=== PATIENT | female | born 1940 | race Caucasian/White ===

== ENCOUNTER 2017-02-22 15:20 | Observation (INO) ==
[2017-02-22] MEDS ORDERED: Nitroglycerin 0.4 MG TAB.SUBL SL ONE (15:26)
--- NOTE | 2017-02-22 15:32 | Emergency Department Note ---
Disposition Clinical Impression: Unstable angina Disposition: Admitted As Inpatient Condition: Good Time of Disposition: 17:53 General Adult HPI - General Chief complaint: ED General Medical Stated complaint: Shoulder/back pain Time Seen by Provider: 02/22/17 15:21 Source: patient, EMS Mode of arrival: ambulatory Limitations: no limitations Nursing Notes Reviewed: Yes Vital Signs Reviewed: Yes - History of Present Illness HPI Narrative: 76-year-old female history of CAD s/p stent over 15 years ago, hypertension, hyperlipidemia, non-smoker presents with shoulder and right back pain. Pain started at 1300 while at rest. She was in town visiting daughter and grandchildren, while getting to ready to leave getting out of the car she felt lightheaded and a sharp constant pain in between the shoulder blades. Denies any history of fall or trauma. Denies any chest pain. Denies any radiation or tearing sensation. She did have associated difficulty breathing and pain with deep inhalation and nausea. Denies any diaphoresis or vomiting. She was playing with her grandchildren. Patient took baby aspirin this morning 7 o' clock. She was also given additional dose of aspirin by EMS. Nitro was also given in her pain has diminished from a 7 to a 5. Denies any history of blood clots, active cancer, recent surgery or long hospitalization. Pain is similar to her myocardial infarction 15 years ago at that time she was diaphoretic, nauseated with some dizziness and back pain as well. On evaluation, pain is pinpoint in the right medial scapula. Symmetrical radial pulses. Chest pain workup initiated. Will continue with a nitro trial, her BP is 109/67. Patient is in agreement with this plan. Disposition pending workup may need admission for observation vs. repeat troponin. HEART score 5 pending troponin Pain Scale: 5 - Related Data Home Medications Medication Instructions Recorded Confirmed Aspirin 81 mg PO DAILY 01/12/16 02/22/17 Losartan/Hydrochlorothiazide 1 tab PO DAILY 01/12/16 02/22/17 [Hyzaar 100-25 Tablet] Simvastatin [Zocor] 40 mg PO HS 01/12/16 02/22/17 Amlodipine Besylate [Amlodipine 5 mg PO DAILY 01/26/16 02/22/17 Besylate] Hydroxychloroquine [Plaquenuil] 200 mg PO BID 04/09/16 02/22/17 Vit Calc,Iron,Folic 1 each PO DAILY 04/09/16 02/22/17 [ Vitamins] FLUoxetine HCl [Prozac] 40 mg PO DAILY 02/22/17 02/22/17 Meloxicam [Mobic] 7.5 mg PO DAILY 02/22/17 02/22/17 Allergies Allergy/AdvReac Type Severity Reaction Status Date / Time No Known Allergies Allergy Verified 07/21/16 13:14 All systems ED: reviewed and negative except as stated. Review of Systems: As Per HPI Constitutional: Denies: fever, chills, weakness Eyes: Denies: vision change Cardiovascular: Denies: chest pain, dyspnea on exertion Respiratory: Reports: dyspnea. Denies: cough Gastrointestinal: Reports: nausea. Denies: abdominal pain, vomiting, diarrhea Genitourinary: Denies: urgency, dysuria Musculoskeletal: Reports: back pain. Denies: neck pain Integumentary: Denies: rash, abrasion Neurological: Denies: headache, weakness, vertigo Past Medical History - Past Medical History Attestation: Yes The following information was validated with the patient. Source: patient Medical history: Reports: non-contributory, hyperlipidemia, hypertension Psychiatric history: Reports: depression FLOW SPECIALIST history: Reports: no FLOW SPECIALIST history - Social History Smoking Status: Never smoker Smokeless Tobacco Status: No Alcohol use: Reports: none Drug use: Reports: none Physical Exam - General Limitations: no limitations General appearance: alert, in no apparent distress - Head Head exam: atraumatic, normocephalic, normal inspection - Eye Eye exam: Present: normal appearance, PERRL, EOMI - ENT ENT exam: normal exam, normal oropharynx, mucous membranes moist - Neck Neck exam: Present: normal inspection, full ROM, trachea midline - Chest Chest inspection: Present: normal inspection, symmetric chest wall rise. Absent : tenderness, rash - Respiratory Respiratory exam: Present: normal lung sounds bilaterally. Absent: respiratory distress, wheezes - Cardiovascular Cardiovascular exam: Present: regular rate, normal rhythm, normal heart sounds - Expanded Cardiovascular Exam Peripheral pulses: 2+: radial (R), radial (L) - Abdominal Exam Abdominal exam: Present: soft, Non-Tender, normal bowel sounds. Absent: tenderness, distention, guarding, rebound, rigidity - Extremities Exam Extremities exam: Present: normal inspection, full ROM, normal capillary refill. Absent: tenderness, pedal edema, calf tenderness - Back Exam Back exam: Present: normal inspection, full ROM, paraspinal tenderness (right medial scapula). Absent: CVA tenderness (R), CVA tenderness (L), vertebral tenderness Back 1 view image: 1 - pinpoint tenderness, worse with protraction of right arm - Neurological Exam Neurological exam: Present: alert, oriented X3 - Skin Skin exam: Present: warm, dry, intact, normal color. Absent: rash, cyanosis, diaphoresis Course - Reevaluation(s) Reevaluation #1: Patient's blood pressure 118/62. After one nitro pain unchanged but developed a headache. She became hypotensive SBP 90 and 500 cc fluid bolus ordered. BP responded appropriately. She has a mild increase in her creatinine 1.3. Troponin 0.01. She continues to not have any chest pain. HEART score is 5 with negative troponin. Due to similarity of her symptoms from prior DE with stents will admit for cardiac observation for ACS. Patient has not had a heart catheterization since then she reports. Impression is unstable angina R/O ACS. Time: 17:08 Reevaluation #2: Son was in the room and states she began to experience some pain. IV morphine and Zofran was ordered. After medications were given patient began to experience epigastric pain which she described as severe. Repeat EKG was performed at 1820 shows no acute changes. Looks very consistent with her prior. Will give her Levsin and Pepcid to help with possible biliary colic from the morphine. She remains hemodynamically stable. Time: 18:23 - Consultations Consultation #1: Spoke with on-call hospitalist scout Ziegler to admit for unstable angina R/O ACS. No further orders at this time Time: 17:45 Vital Signs Temperature 97.8 F 02/22/17 15:24 Pulse Rate 87 02/22/17 15:24 Respiratory Rate 18 02/22/17 15:24 Blood Pressure 109/67 02/22/17 15:24 O2 Sat by Pulse Oximetry 98 02/22/17 15:24 Temperature 97.7 F 02/22/17 19:25 Pulse Rate 90 02/22/17 19:25 Respiratory Rate 18 02/22/17 19:25 Blood Pressure 121/71 02/22/17 19:25 O2 Sat by Pulse Oximetry 94 02/22/17 19:25 Oxygen Delivery Oxygen Delivery Room Air Medical Decision Making - Medical Records Medical records reviewed: Yes I reviewed the patient's medical records. - Lab Data Lab results reviewed: Yes I reviewed the patient's lab results. Result diagrams: 02/22/17 15:49 02/22/17 15:49 Lab Results 02/22/17 02/22/17 02/22/17 Range/Units 15:49 15:49 15:49 WBC 5.3 (4.3-11.1) K/mcL RBC 3.84 (3.82-4.97) M/mcL Hgb 11.5 (11.5-15.4) g/dL Hct 35.4 (35.3-44.9) % MCV 92.2 (83.0-100.0) fL MCH 29.9 (28.0-33.3) pg MCHC 32.5 (31.6-35.5) g/dL RDW 12.7 (11.5-14.5) % Plt Count 191 (140-400) K/mcL MPV 10.3 (9.4-12.4) fL Immature Gran % 0.2 (0-4) % Seg Neutrophils % 61.1 % Lymphocytes % 22.6 % Monocytes % 11.5 % Eosinophils % 3.8 % Basophils % 0.8 % Neutrophils # 3.2 (1.6-8.9) K/mcL Lymphocytes # 1.2 (0.6-4.6) K/mcL Monocytes # 0.6 (0.0-1.3) K/mcL Eosinophils # 0.2 (0.0-0.6) K/mcL Basophils # 0.0 (0.0-0.2) K/mcL PT 10.9 (9.4-12.1) Seconds INR 1.0 APTT 28.9 (26.0-36.0) Seconds Sodium 138 (136-145) mEq/L Potassium 4.1 (3.5-4.5) mEq/L Chloride 102 (98-109) mEq/L Carbon Dioxide 29 (19-29) mEq/L BUN 19 (7-20) mg/dL Creatinine 1.30 H (0.57-1.11) mg/dL Est GFR ( Amer) 48 L (> 60) Est GFR (Non-Af Amer) 40 L (> 60) BUN/Creatinine Ratio 15 (6-26) Glucose 101 H (70-99) mg/dL Calculated Osmolality 288 (280-300) Calcium 9.1 (8.6-10.8) mg/dL Troponin I (0-0.03) ng/mL 02/22/17 Range/Units 15:49 WBC (4.3-11.1) K/mcL RBC (3.82-4.97) M/mcL Hgb (11.5-15.4) g/dL Hct (35.3-44.9) % MCV (83.0-100.0) fL MCH (28.0-33.3) pg MCHC (31.6-35.5) g/dL RDW (11.5-14.5) % Plt Count (140-400) K/mcL MPV (9.4-12.4) fL Immature Gran % (0-4) % Seg Neutrophils % % Lymphocytes % % Monocytes % % Eosinophils % % Basophils % % Neutrophils # (1.6-8.9) K/mcL Lymphocytes # (0.6-4.6) K/mcL Monocytes # (0.0-1.3) K/mcL Eosinophils # (0.0-0.6) K/mcL Basophils # (0.0-0.2) K/mcL PT (9.4-12.1) Seconds INR APTT (26.0-36.0) Seconds Sodium (136-145) mEq/L Potassium (3.5-4.5) mEq/L Chloride (98-109) mEq/L Carbon Dioxide (19-29) mEq/L BUN (7-20) mg/dL Creatinine (0.57-1.11) mg/dL Est GFR ( Amer) (> 60) Est GFR (Non-Af Amer) (> 60) BUN/Creatinine Ratio (6-26) Glucose (70-99) mg/dL Calculated Osmolality (280-300) Calcium (8.6-10.8) mg/dL Troponin I 0.01 (0-0.03) ng/mL - Radiology Data Radiology results reviewed: Yes I reviewed the patient's radiology results. Chest X-Ray 02/22/17 15:27 IMPRESSION: No acute process. D/ / Manohar Ellington MD / Manohar Ellington MD Interpreting Provider: Manohar Ellington MD - EKG Data EKG #1 EKG attestation: Yes I reviewed and interpreted this EKG. EKG results narrative: EKG performed 1528 normal sinus rhythm 86 bpm normal axis, poor R-R wave progression, no ST elevations or depression, old Q wave in septal leads compared to old EKG performed 02/15/2015. She is currently chest pain free. No acute ischemic changes. Attestation Statement - Attestation Attestation: I personally interviewed and examined this patient and my medical decision- making was reviewed with the Resident Physician, Dr. Bear. I agree with the documented findings, disposition and treatment plan as described except to the extent set forth below. Patient is a 76-year-old white female who presents to the emergency Department today with complaints of back pain between her shoulder blades as well as right shoulder pain which began approximate 10:30 this morning with patient stating "this is exactly how I felt when I had my heart attack". Patient states she had some associated nausea and shortness of breath. Patient reports taking aspirin in the morning that she typically takes 1 baby aspirin. Patient also took 2 nitroglycerin at home which did improve her pain but she stopped taking any further due to generalized headache. Patient presents with ongoing symptoms that she rates about 6 out of 10 in severity. Patient reports a history of known CAD with stent placement 15 years ago. Patient has had no intervention since that time. Patient also has a history of hypertension and hyperlipidemia. Agree patient's physical exam findings as documented. Pt's EKG is unremarkable with no acute ischemic change appreciated. Patient was placed on satellite project site monitor, continuous pulse ox, labs are drawn and sent and portal chest x-ray was obtained. Patient's labs were unremarkable including a negative troponin and chest x-ray showed no acute process. Patient had one nitroglycerin here in the ED and became subsequently hypotensive and required a fluid bolus. No further nitroglycerin was administered. Patient was given additional aspirin. Patient had almost complete relief of her symptoms. Due to patient's cardiac history similar symptoms we decided to admit the patient for further cardiac evaluation and management. Patient care was discussed with the hospitalist who accepted the patient for admission.
[2017-02-22 16:29] LABS: Prothrombin Time 10.9 Seconds (9.4-12.1)
[2017-02-22 16:31] LABS: Activated Partial Thrombo Time 28.9 Seconds (26.0-36.0); Basophils % 0.8 %; Eosinophils # 0.2 K/mcL (0.0-0.6); Eosinophils % 3.8 %; Hematocrit 35.4 % (35.3-44.9); Hemoglobin 11.5 g/dL (11.5-15.4); Immature Granulocytes % 0.2 % (0-4); Lymphocytes # 1.2 K/mcL (0.6-4.6); Lymphocytes % 22.6 %; Mean Corpuscular HGB Conc 32.5 g/dL (31.6-35.5); Mean Corpuscular Hemoglobin 29.9 pg (28.0-33.3); Mean Corpuscular Volume 92.2 fL (83.0-100.0); Mean Platelet Volume 10.3 fL (9.4-12.4); Monocytes # 0.6 K/mcL (0.0-1.3); Monocytes % 11.5 %; Neutrophils # 3.2 K/mcL (1.6-8.9); Platelet Count 191 K/mcL (140-400); Red Blood Count 3.84 M/mcL (3.82-4.97); Red Cell Distribution Width 12.7 % (11.5-14.5); Segmented Neutrophils % 61.1 %
[2017-02-22 16:32] LABS: Calcium 9.1 mg/dL (8.6-10.8); Potassium 4.1 mEq/L (3.5-4.5)
[2017-02-22] MEDS ORDERED: *HR* Morphine 2 MG/ML SYRINGE IVP ONE (17:08)
[2017-02-22] MEDS ORDERED: Ondansetron 4 MG/2 ML VIAL IVP ONE (17:08)
[2017-02-22] MEDS ORDERED: Hyoscyamine 0.5 MG/ML MLS IVP ONE (18:23)
[2017-02-22] MEDS ORDERED: Famotidine 20 MG/2 ML VIAL IVP ONE (18:23)
[2017-02-22] MEDS ORDERED: Naloxone 0.4 MG/ML INJ IVP PRN (19:36)
[2017-02-22] MEDS ORDERED: Ondansetron 4 MG/2 ML VIAL IVP PRN (19:36)
--- NOTE | 2017-02-22 20:11 | Internal Med History&Physical ---
Date of Encounter: 02/22/17 Time of Encounter: 20:11 Assessment and Plan (1) Chest pain Current visit: Yes Status: Acute pt with a hx of CAD s/p PCI comes in with atypical chest pain but due to her hx , her female gender and age she could have any presentation of ACS, she has risk factors that are concerning so it will be reasonable to r/o ACS, NPO post midnight for this reason, meanwhile we will cycle troponin, telemonitor, check A1c and lipid profile Qualifiers: Chest pain type: intercostal pain Qualified Code(s): R07.82 - Intercostal pain (2) Renal insufficiency Current visit: Yes Status: Acute she has normal renal function but now comes in with creatinine of 1.3, we will hydrate and follow BMP (3) HTN (hypertension) Current visit: Yes Status: Chronic she is normotensive here on multiple medications, she reports home BP reading in the 140's systolic, we will continue her home regimen with BP monitoring Qualifiers: Hypertension type: essential hypertension Qualified Code(s): I10 - Essential (primary) hypertension (4) Depression Current visit: Yes Status: Chronic we will continue her home medication Qualifiers: Depression Type: major depressive disorder Major depression recurrence: recurrent Active/Remission status: in partial remission Qualified Code(s): F33.41 - Major depressive disorder, recurrent, in partial remission Internal Medicine - H&P: HPI Chief complaint: upper back pain Admitted From: Emergency Dept Plans for Post Hospital Care: Home History of present illness: Ms. Fisher is a 76 year old female with a hx of CAD s/p stent about 15 years ago who comes in with pain between her shoulder blades. She went to visit her grandchildren today and had to carry then around for a while, later when she returned home whilst getting out of her car at around 1300 she felt lightheaded and was nauseous. At the same time she had sudden onset of sharp pain between her shoulder blades that was 9/10 in severity, worse with breathing and she was additionally dyspneic. She continued to have this pain. Pain severity improved with nitro, pain did not radiate and the character did not change. She denies recent upper respiratory tract infection, long distance travel or sedentary lifestyle. She denies diaphoresis, vomiting, but admits to feeling of apprehension and palpitations at the time. She reported to the ER for further evaluation. She does not recall her last stress test. 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 GERD PAST SURGICAL HISTORY PATRICIA/BSO 1979' section twins 1965 Appendectomy 1965 Cholecystectomy 1969' Right hip replacement 2012 Right eye surgery Open release of 5th trigger finger Tonsillectomy and adenoidectomy SOCIAL HISTORY She denies smoking or alcohol use, she lives at home with her family FAMILY HISTORY father had colon cancer, mother had no known medical hx that she was aware of, family hx is also positive for DM, heart disease Past Med Surg Social Fam HX - Past Medical History Medical history: arthritis (Rheumatoid), hyperlipidemia, hypertension Psychiatric history: depression - Past Surgical History Surgical History: hip replacement, other - Social History Smoking Status: Never smoker Smokeless Tobacco Status: No Alcohol use: none Drug use: none - Family History Father Adopted: [place]: ROSI Family Member Ethnicity: Non- Living Status: Age at : 70 Cause of : [place] Hx Family Cardiac Disorders: Yes Hx Family Respiratory Disorders: No Hx Family Cancer: Yes (COLON) Hx Family GI Disorders: No Hx Family Genitourinary Disorders: No Hx Family Endocrine Disorder: No Hx Family Musculoskeletal Disorders: No Hx Family Neuromuscular Disorders: No Hx Family Neurologic Disorders: No Hx Family HEENT Disorders: No Hx Family Autoimmune Disorders: No Hx Family Reproductive Disorders: No Hx Family Psychosocial Disorders: No Hx Family Medical Disorders: No Internal Medicine - H&P: Meds Aspirin 81 mg PO DAILY 01/12/16 [History] Losartan/Hydrochlorothiazide [Hyzaar 100-25 Tablet] 1 tab PO DAILY 01/12/16 [ History] Simvastatin [Zocor] 40 mg PO HS 01/12/16 [History] Amlodipine Besylate [Amlodipine Besylate] 5 mg PO DAILY 01/26/16 [History] Hydroxychloroquine [Plaquenuil] 200 mg PO BID 04/09/16 [History] Vit Calc,Iron,Folic [ Vitamins] 1 each PO DAILY 04/09/16 [ History] FLUoxetine HCl [Prozac] 40 mg PO DAILY 02/22/17 [History] Meloxicam [Mobic] 7.5 mg PO DAILY 02/22/17 [History] Allergies No Known Allergies Allergy (Verified 12/16/16 13:14) All Systems PM: A 10-system review of systems was performed and is negative for pertinent findings except as documented above in the HPI. - Constitutional Vitals: Temp Pulse Resp BP Pulse Ox 97.7 F 90 18 121/71 94 02/22/17 19:25 02/22/17 19:25 02/22/17 19:25 02/22/17 19:25 02/22/17 19:25 GENERAL: Adult female, lying in bed with no sign of distress, Alert, HEENT: NC/AT, EOMI, PERRLA, anicteric sclera, normal conjunctiva, supple, clear nares, moist mucous membranes, RESP: Lungs are clear to auscultation bilaterally, good AE bilaterally, No crackles or wheeze CARDIO: Normal hearts sounds; S1 and 2, RRR with no murmurs, no JVD, no ankle edema GI: Soft, full, no tenderness, no organomegaly felt, normal bowel sounds heard MUSCULOSKELETAL: grossly normal movements bilaterally, no deformities noted, no calf tenderness NEUROLOGIC: CN 2-12 intact grossly. No gross motor/sensory deficit appreciated, PSYCHIATRY: AAO x 3. Mood is fair, SKIN: no skin rash or ulcers noted Internal Med - H&P Results - Labs CBC & Chem 7: 02/22/17 15:49 02/23/17 03:26 - EKG Data -: EKG Interpreted by Myself EKG shows normal: sinus rhythm - Diagnostic Studies Chest x-ray Status: image reviewed by me
[2017-02-23 04:39] LABS: Hemoglobin A1C 5.4 %
[2017-02-23 04:51] LABS: Blood Urea Nitrogen 17 mg/dL (7-20); Carbon Dioxide 29 mEq/L (19-29); Chloride 105 mEq/L (98-109); Potassium 3.9 mEq/L (3.5-4.5); Sodium 140 mEq/L (136-145)
[2017-02-23 04:52] LABS: BUN/Creatinine Ratio 16 (6-26); Calcium 8.9 mg/dL (8.6-10.8); Chol/HDL Ratio 2.8 (0-4.9); Cholesterol 164 mg/dL (< 200); Glucose 98 mg/dL (70-99); HDL Cholesterol 58 mg/dL (40-59); LDL Cholesterol,Calculated 87 mg/dL (0-99); Magnesium 1.9 mg/dL (1.6-2.6); Osmolality,Calculated 292 (280-300); Phosphorous 3.9 mg/dL (2.3-4.7); Triglycerides 97 mg/dL (< 150); eGFR For African Americans > 60 (> 60); eGFR For Non-African Americans 50 (> 60)
[2017-02-23] MEDS ORDERED: Regadenoson 0.4 MG/5 ML SYRINGE IVP ONE (05:49)
[2017-02-23] MEDS ORDERED: *HR* Heparin 5,000 UNIT/ML VIAL SQ SCH (07:00)
[2017-02-23] MEDS ORDERED: FLUoxetine 20 MG CAPSULE PO SCH (09:00)
[2017-02-23] MEDS ORDERED: amLODIPine 5 MG TABLET PO SCH (09:00)
[2017-02-23] MEDS ORDERED: Aspirin 81 MG TAB.CHEW PO SCH (09:00)
[2017-02-23] MEDS ORDERED: Prenatal Vit/FA 1 EACH TABLET PO SCH (09:00)
[2017-02-23] MEDS ORDERED: Losartan/HCTZ 50-12.5 TABLET PO SCH (09:00)
[2017-02-23 11:22] VITALS: BP 127/75
--- NOTE | 2017-02-23 12:23 | Nuclear Medicine Stress Report ---
Regadenoson Nuclear Stress Name: Danielle Fisher Date of Study: 02/23/2017 Date: 1940 Ht: 63.0 in Medical Record#: [id number] Age: 76 Wt: 181.0 lb Gender: Female Order #: [id number] Location: [facility] Room: [facility] Supervising Provider: Barbie Marquez CNP Reading Physician: Mabel Hawkins DO Ordering Physician: Meagan Iraheta CNP Primary Care Physician: Lisa Atwood CNP Stress Technologist: Cristela [place], [employer] Storage Solutions Architect: Serge Hatch Indications: Chest Pain Impression: Perfusion imaging was negative for ischemia or infarct. Pharmacologic ECG was negative for ischemia at the level of heart rate achieved. Patient had chest pain with pharmacologic stress. Recommend clinical correlation. Gated EF = >70%. History: Hypertension Hypercholesteremia Prior PCI Stress Test Summary: Stress Test Type: Pharmacologic Regadenoson 0.4mg/5ml given IV Baseline Information: Initial Heart Rate: 72 Blood Pressure: 112/72 Stress Information: Test Terminated Due to (primary): As per protocol Maximum Blood Pressure: 92/60 Maximum Heart Rate: 90 Percent Maximum Heart Rate Achieved: 63 Double Product: 8280 METS Reached: 1 Symptoms: Chest pressure Nuclear Summary: SPECT myocardial perfusion imaging using Tc99m Sestamibi given intravenously was performed at rest and following cardiac stress testing. The resting images were obtained following initial dose of 11.0 mCi. Following stress an additional dose of 33.6 mCi was given at peak exercise or 30 seconds post regadenoson infusion. Medication Given: Time Medication Dose Units Route Findings: Stress Note * Resting ECG demonstrated normal sinus rhythm with poor R-wave progression and possible lead misplacement and precordial leads.. * Pharmacologic stress ECG is negative for ischemia at level of heart rate achieved. * No arrhythmias were noted during stress. * Patient describes 6 out of 10 chest pressure with pharmacologic stress. Hemodynamic responses * Beginning BP 112/72 mmHg. With pharmacologic infusion, blood pressure decreased to 90/58 mmHg but improved with IV fluids. Study Quality * Study quality was fair. Gated EF > 70% * Gated EF > 70%. Left Ventricle * The left ventricle is not dilated. TID * No evidence of transient ischemic dilatation. Lung Uptake * There is no evidence of increase lung uptake. NORMALS * Normal wall motion. PERFUSION * Homogeneous rest and stress perfusion without evidence for ischemia or infarct. Updated by Mabel Hawkins on 02/23/2017 12:17:14 PM electronically signed on 02/23/2017 12:18:16 PM with status of Final
--- NOTE | 2017-02-23 12:26 | Electrocardiograph Report ---
[address] [place] [address] Test Date: 2017-02-22 Pat Name: Danielle Fisher Department: 104 Room: 3B Gender: F Bank Representative: BINH : 1940 Requested By: Ramírez Bear Order Number: [id number] Reading MD: Bryon Cummins MD Measurements Intervals [place] Rate: 86 P: 66 DC: 162 QRS: 20 QRSD: 97 T: 53 QT: 407 QTc: 450 Interpretive Statements SINUS RHYTHM WITH OCCASIONAL SUPRAVENTRICULAR PREMATURE COMPLEXES SEPTAL MYOCARDIAL INFARCTION, OF INDETERMINATE AGE BASELINE ARTIFACT Electronically Signed On 02-23-2017 12:24:45 EDT by Bryon Cummins MD
--- NOTE | 2017-02-23 12:27 | Electrocardiograph Report ---
[address] [address] Test Date: 2017-02-22 Pat Name: Danielle Fisher Department: 104 Room: 3B Gender: F Tourist Escort: BINH : 1940 Requested By: Meagan Iraheta Order Number: [id number] Reading MD: Bryon Cummins MD Measurements Intervals [place] Rate: 70 P: 61 RI: 167 QRS: 19 QRSD: 101 T: 59 QT: 434 QTc: 454 Interpretive Statements SINUS RHYTHM Electronically Signed On 02-23-2017 12:25:54 EDT by Bryon Cummins MD
--- NOTE | 2017-02-23 13:14 | Discharge Summary ---
Date of Encounter: 02/23/17 Time of Encounter: 13:11 - Discharge Diagnosis (1) Chest pain Priority: Primary Status: Resolved Qualifiers: Chest pain type: intercostal pain Qualified Code(s): R07.82 - Intercostal pain (2) HTN (hypertension) Priority: Secondary Status: Chronic Qualifiers: Hypertension type: essential hypertension Qualified Code(s): I10 - Essential (primary) hypertension (3) Renal insufficiency Priority: Secondary Status: Resolved (4) Depression Priority: Secondary Status: Chronic Qualifiers: Depression Type: major depressive disorder Major depression recurrence: recurrent Active/Remission status: in partial remission Qualified Code(s): F33.41 - Major depressive disorder, recurrent, in partial remission - Discharge Medications Home Medications: Aspirin 81 mg PO DAILY 01/12/16 [History] Losartan/Hydrochlorothiazide [Hyzaar 100-25 Tablet] 1 tab PO DAILY 01/12/16 [ History] Simvastatin [Zocor] 40 mg PO HS 01/12/16 [History] Amlodipine Besylate 5 mg PO DAILY 01/26/16 [History] Hydroxychloroquine [Plaquenuil] 200 mg PO BID 04/09/16 [History] Vit Calc,Iron,Folic [ Vitamins] 1 each PO DAILY 04/09/16 [ History] FLUoxetine HCl [Prozac] 40 mg PO DAILY 02/22/17 [History] Meloxicam [Mobic] 7.5 mg PO DAILY 02/22/17 [History] Allergies/Adverse Reactions: Allergies No Known Allergies Allergy (Verified 07/21/16 13:14) Procedures/tests Complete & Pending: Procedures Performed prior 72 hours Category Date Time Status NM ritika perf SPECT multi [NM] Routine Exams 02/22/17 20:49 Taken ECG 12 lead ECG [ECG] Routine Y 02/22/17 18:20 Completed SP pharm nuclear stress Routine Y 02/23/17 07:00 Completed Date of admission: 02/22/17 17:40 Primary care physician: Lisa Atwood, Discharging clinician: Varsha Chan Anticipated date of discharge: 02/23/17 - Patient Status Disposition: Home, Self-Care Condition: Good Functional capacity at discharge: independent ambulation Overall status at discharge: patient is back to baseline - Discharge Instructions Follow Up With: Lisa Atwood, BRYAN [Primary Care Provider] - Additional Instructions: Please follow up with your primary care physician within one week after your discharge from the hospital. Please closely monitor your blood pressure at home. Hold your blood pressure medications if your systolic blood pressure is less than 100. Please keep a log of your daily blood pressure readings and take it with you to your primary care physician's appointment. Please resume all your other home medications as prescribed by your primary care physician. Please seek medical help if chest pain reoccurs. - Diet and Activity Activity: resume usual activities as tolerated Diet: low fat, low cholesterol, low salt diet Hospital course: Ms. Fisher is a 76 year old female with extensive PMH including CAD s/p stent about 15 years ago, HTN, dyslipidemia who presented to the ER for acute onset of chest pain. Patient was admitted overnight for observation. Her serial TNI were monitored and she underwent nuclear stress test. Her nuclear stress test is negative for any ischemic perfusion defect and her serial TNI have been negative. She is currently chest pain free and hemodynamically stable. Patient will be discharged to home with follow up with her PCP. Patient demonstrates understanding of her diagnosis and agrees with her discharge care and plan. - Time Spent with Patient Total time spent providing and/or coordinating discharge services: Less than 30 minutes - Constitutional Vitals: Temp Pulse Resp BP Pulse Ox 97.6 F 69 16 127/75 97 02/23/17 11:22 02/23/17 11:22 02/23/17 11:22 02/23/17 11:22 02/23/17 11:22 General appearance: Present: cooperative, A&O X 3, pleasant, no acute distress, obese, answers questions appropriately - Head Head exam: Present: atraumatic, normocephalic - Eye Eye exam: Present: normal appearance, conjuntiva pink, sclera anicteric - Respiratory Respiratory exam: Present: CTAB. Absent: accessory muscle use, rales, rhonchi, wheezes - Cardiovascular Cardiovascular exam: Present: RRR, +S1, +S2. Absent: diastolic murmur, gallop, rubs, systolic murmur - GI/Abdominal GI/Abdominal exam: Present: normal bowel sounds, soft, no peritoneal signs. Absent: distended, tenderness - Extremities Exam Extremities exam: Present: warm, radial pulses palpable and symetrical. Absent : calf tenderness, cyanotic, pedal edema - Neurological Exam Neurological exam: Present: alert, oriented X3 - Psychiatric Psychiatric exam: Present: normal affect, normal mood
== END 2017-02-23 14:32 | disposition home or self-care (01) ==
LOC: 3BNU 15:20 → EMEROO 15:20 → 3BNU 19:02
PROVIDERS: ADMIT Internal Medicine; ATTEND Registered Nurse

== ENCOUNTER 2019-05-01 12:53 | Observation (INO) ==
[2019-05-01] MEDS ORDERED: CeFAZolin Syr 2,000MG/20 ML 2,000 MG/20 ML SYRINGE IVPB ONE (13:22)
--- NOTE | 2019-05-01 13:27 | History & Physical Report ---
Date of Encounter: 05/01/19 Time of Encounter: 13:27 24 Hour HP Update - Instructions Instructions: If the History and Physical is less than 30 days old and was completed prior to A.M. admission and or procedure and has NOT been updated on calendar day of procedure please complete this update prior to performing procedure. - Update Patient reports changes in Medical Condition: No Changes in examination, assessment, or condition: No Changes in Medication: No Preop tests/diagnostics Reviewed: Yes Surgery Remains Indicated: Yes Consent for Planned Operative Procedure(s) Verified: Yes - Pre-Operative Checklist Preoperative Checklist Indicated: No Prophylactic Antibiotic Ordered: Yes Is VTE Prophylaxis Indicated?: Yes
[2019-05-01] MEDS: Ringers Solution, Lactated 1,000 ML IVC SCH ×2 (13:48→17:21)
--- NOTE | 2019-05-01 14:01 | Anesthesia Evaluation PreOp ---
Date of Encounter: 05/01/19 Time of Encounter: 13:59 - Past History Planned Operation: Left Total Knee Arthroplasty Cardiac History: HTN, Hyperlipidemia, Cardiac Stent (stent x 1 in 2002) Pulmonary History: Denies Any Significant HX, Snore OXIDE FURNACE TENDER History: Denies Any Significant HX Other Medical History: GERD (hiatal hernia), Other (depression) Anesthesia History: No Prior Anesthetic Complications, Past Anesthesia Alcohol Use: none Drug use: none Medications and Allergies Aspirin 81 mg PO DAILY 01/12/16 [History] Losartan/Hydrochlorothiazide [Hyzaar 100-25 Tablet] 1 tab PO DAILY 01/12/16 [History] Simvastatin [Zocor] 40 mg PO HS 01/12/16 [History] Amlodipine Besylate 5 mg PO DAILY 01/26/16 [History] Hydroxychloroquine [Plaquenuil] 200 mg PO BID 04/09/16 [History] Vit Calc,Iron,Folic [ Vitamins] 1 each PO DAILY 04/09/16 [History] FLUoxetine HCl [Prozac] 40 mg PO DAILY 02/22/17 [History] Etodolac 400 mg PO BID 07/11/17 [History] HYDROcodone/Acet 5/325 mg [[place] 5-325 mg] 1 tab PO Q6H PRN #12 tab 07/11/17 [Rx] hydrOXYzine HCl [Hydroxyzine HCl] 25 mg PO TID PRN 07/11/17 [History] Allergy/AdvReac Type Severity Reaction Status Date / Time No Known Allergies Allergy Verified 07/12/18 19:01 - Meds/Allergy Pre-op Review Medications Reviewed: Yes Allergies Reviewed: Yes Beta Blockers on Current Med List: No Anesthesia Results - Labs Laboratory Tests 04/09/19 04/09/19 04/09/19 11:38 11:38 11:38 WBC 5.3 Hgb 12.7 Hct 38.9 Plt Count 208 PT 11.7 INR 1.0 APTT 34.5 Sodium 139 Potassium 3.8 BUN 18 Creatinine 1.06 - Imaging EKG: report reviewed (07/02/2017 SINUS RHYTHM SEPTAL MYOCARDIAL INFARCTION, OF INDETERMINATE AGE) Additional studies: 02/23/2017 Stress Impression: Perfusion imaging was negative for ischemia or infarct. Pharmacologic ECG was negative for ischemia at the level of heart rate achieved. Patient had chest pain with pharmacologic stress. Recommend clinical correlation. Gated EF = >70%. 03/17/2015 Echo Impressions: Normal left ventricular systolic function, LVEF 65%. Mild left ventricular diastolic dysfunction. Normal right ventricular structure and function. Mild-moderately dilated left atrium. No significant valvular dysfunction. No evidence of pulmonary hypertension. Anesthesia Exam O2 Sat Height 1.6 m Height 1.6 m Weight 83.915 kg Weight 83.915 kg O2 Sat by Pulse Oximetry 97 O2 Sat by Pulse Oximetry 97 Vital Signs Temp Pulse Resp BP Pulse Ox 98.2 F 68 18 125/73 97 05/01/19 13:16 05/01/19 13:16 05/01/19 13:16 05/01/19 13:16 05/01/19 13:16 Height: 5'3'' Weight: 185 lbs NPO (# of Hours): 8 Pain Scale: 0 Pain Scale Used: Numeric (1 - 10) - HEENT Pupil (Motor): EOMI Mallampati: II Teeth: Edentulous Oral Opening: Greater than 3 - OXIDE FURNACE TENDER LOC: Oriented OXIDE FURNACE TENDER Motor: Normal RUE, Normal LUE, Normal RLE, Normal LLE, Normal Face OXIDE FURNACE TENDER Sensory: Normal: RUE, LUE, RLE, LLE, Face - Cardiac Rhythm: Regular Murmur: None - Pulmonary Breath Sounds: bilateral Clear Respiratory Effort: Symmetrical Anesthesia Assess/Plan ASA Score: 3 Level of consciousness: Cooperative, Oriented, Tranquil Anesthetic Plan: Regional Nerve Block, Spinal Regional Nerve Block Plan: Adductor canal Monitoring Plan: Standard Monitors Recovery Plan: PACU
[2019-05-01] MEDS ORDERED: Celecoxib 200 MG CAPSULE PO ONE (14:34)
[2019-05-01] MEDS ORDERED: Ropivacaine/PF 0.5% 30 ML VIAL ONE (14:36)
[2019-05-01] MEDS ORDERED: *HR* OxyCODONE ER (12 HR) 10 MG TABLET PO ONE (14:36)
[2019-05-01] MEDS ORDERED: *HR* HYDROmorphone (PF) 1 MG/ML SYRINGE IVP PRN (14:38)
[2019-05-01] MEDS ORDERED: *HR* OxyCODONE Immed Rel 5 MG TABLET PO PRN (14:38)
[2019-05-01] MEDS ORDERED: Ondansetron 4 MG/2 ML VIAL IVP ONE (14:38)
[2019-05-01] MEDS ORDERED: *HR* FentaNYL (PF) 100 MCG/2 ML VIAL ONE (14:42)
[2019-05-01] MEDS ORDERED: Ondansetron 4 MG/2 ML VIAL ONE (14:43)
[2019-05-01] MEDS ORDERED: *HR* Propofol 200 MG/20 ML VIAL IVP ONE (14:43)
[2019-05-01] MEDS ORDERED: Lidocaine -MPF 2% 2 ML VIAL ONE (14:43)
[2019-05-01] MEDS ORDERED: Ethanol\\Acetic Acid\\Na Ace\\Ben 1,000 ML IRRIG.SOLN IR ONE (15:00)
[2019-05-01] MEDS ORDERED: Total Joint Mixture (50 ml) IR ONE (15:10)
--- NOTE | 2019-05-01 15:18 | Discharge Summary ---
<Bennie Mendiola M - Last Filed: 05/01/19 15:15> Date of Encounter: 05/01/19 - Discharge Diagnosis (1) Left knee pain Priority: Primary Status: Acute (2) Status post total left knee replacement Priority: Primary Status: Acute - Hospital Course Hospital course: Ms. Fisher is a 78 year old female - Time Spent with Patient Total time spent providing and/or coordinating discharge services: - Discharge Medications Prescriptions: New Docusate [Colace] 100 mg PO BID 5 Days #10 capsule Acetaminophen [Pain Relief] 500 mg PO Q6H 7 Days #28 tablet OxyCODONE Immed Rel [Roxicodone 5 MG] 5 mg PO Q6HR PRN 5 Days #20 tablet PRN Reason: Severe Pain Aspirin Enteric Coated [Aspirin EC] 325 mg PO BID 10 Days #20 tablet. Continued Aspirin 81 mg PO DAILY Losartan/Hydrochlorothiazide [Hyzaar 100-25 Tablet] 1 tab PO DAILY Hydroxychloroquine [Plaquenuil] 200 mg PO BID hydrOXYzine HCl [Hydroxyzine HCl] 25 mg PO TID PRN PRN Reason: Anxiety Amlodipine Besylate 1 mg PO DAILY Atorvastatin [Lipitor] 10 mg PO HS Clobetasol Propionate [Temovate] 1 appl TP TID Escitalopram [Lexapro] 20 mg PO DAILY Metoprolol [Lopressor] 25 mg PO BID Pnv No.122/Iron/Folic Acid [ Multi Tablet] 1 tab PO DAILY Home Medications: Aspirin 81 mg PO DAILY 01/12/16 [History] Losartan/Hydrochlorothiazide [Hyzaar 100-25 Tablet] 1 tab PO DAILY 01/12/16 [History] Hydroxychloroquine [Plaquenuil] 200 mg PO BID 04/09/16 [History] hydrOXYzine HCl [Hydroxyzine HCl] 25 mg PO TID PRN 07/11/17 [History] Acetaminophen [Pain Relief] 500 mg PO Q6H 7 Days #28 tablet 05/01/19 [Rx] Docusate [Colace] 100 mg PO BID 5 Days #10 capsule 05/01/19 [Rx] OxyCODONE Immed Rel [Roxicodone 5 MG] 5 mg PO Q6HR PRN 5 Days #20 tablet 05/01/19 [Rx] Aspirin Enteric Coated [Aspirin EC] 325 mg PO BID 10 Days #20 tablet. 05/02/19 [Rx] Amlodipine Besylate 1 mg PO DAILY 05/05/19 [History] Atorvastatin [Lipitor] 10 mg PO HS 05/05/19 [History] Clobetasol Propionate [Temovate] 1 appl TP TID 05/05/19 [History] Escitalopram [Lexapro] 20 mg PO DAILY 05/05/19 [History] Metoprolol [Lopressor] 25 mg PO BID 05/05/19 [History] Pnv No.122/Iron/Folic Acid [ Multi Tablet] 1 tab PO DAILY 05/05/19 [History] Allergies/Adverse Reactions: Allergy/AdvReac Type Severity Reaction Status Date / Time No Known Allergies Allergy Verified 05/05/19 11:17 Primary care physician: Lisa Atwood CNP - Patient Status Disposition: Transfer SNF Condition: Good - Discharge Instructions Follow Up With: Lisa Atwood CNP [Primary Care Provider] - Additional Instructions: Discharge Instructions: Total Knee Replacement Please call [facility] ([phone]), your Primary Care Physician, or report to the Emergency Room if you have any of the following symptoms: Nausea, vomiting, fever greater that 101.5, swelling, chest pain, shortness of breath, increased pain/redness/drainage/odor for your incision site, numbness/tingling, or any other concerning symptoms. ACTIVITY:Weight-bearing as tolerated. You may progress off support (crutches or walker) as tolerated. Incentive Spirometer 10 times an hour. MEDICATIONS: Upon discharge resume your home medications. Take all the medications as prescribed. Take a stool softener if taking narcotic pain medications. Stool softeners are only effective if you drink enough fluids. Drink 6-8 glass of water or fluids a day, unless this is not allowed for another health problem. Despite using stool softeners, if you haven't had a bowel movement in 3 days, please switch to a gentle laxative. Gentle laxatives are sold over the counter. You should have a bowel movement within 24 hours, if not call the office. You will be discharged from the hospital with a prescription for pain medication. You are encouraged to decrease the use of narcotic pain medication as tolerated. Should you require a refill, please call the office. [facility] prescribes narcotic pain medication for only 4-6 weeks after surgery. If you require pain medication beyond this time period, you may be referred to your Primary Care Physician or to the Pain Clinic for further evaluation. Plan ahead for refills on pain medication as many narcotics either need to be picked up at the office or mailed. It is best to call 48-72 hours in advance of needing a prescription refill so you don't run out of medication. To help control the post-operative pain, you may take NSAIDs (Aleve,Advil, Motrin, Ibuprofen, Naprosyn) or Tylenol as prescribed on the bottle in addition to the pain medication. ANTICOAGULATION (blood thinners): Continue your Aspirin, Lovenox or Coumadin as prescribed to help prevent a blood clot in the leg or in the lungs. As long as your incision remains dry and you tolerate the NSAIDs (Aleve, Advil, Motrin, ibuprofen, naprosyn), it is OK to use the NSAIDS while you are taking your anticoagulation medication. Should your incision start to drain, stop the NSAID and contact our office. Common symptoms of blood clot in the legs include: localized pain, swelling, calf tenderness, redness or discoloration of the skin. Blood clot in the lung symptoms include: shortness of breath, rapid pulse, sweating, and chest pain that worsens with deep breathing, coughing up blood, lightheadedness, feelings of anxiety. If you experience any of these symptoms notify your physician immediately, go to the emergency room, or if having trouble breathing, call 911. WOUND CARE: Leave the dressing on for 7 to 10days. You may change the dressing if it becomes saturated greater than 50%. Do not get the dressing wet at anytime. Wash your hands with antibacterial soap, rinse and dry prior to any w ound care. If you have ami the visiting nurse or rehab facility can remove the stapes 10-14 days after surgery and place steri-strips across the wound. Leave the steri-strips in place until they fall off on their won. You may let water from the shower run on top of the steri-strips. If you do not have a visiting nurse or rehab facility, you will need to return to the office at 10-14 days for the ami to be removed. If you have itching or redness around the dressing call the office. FOLLOW-UP: Please follow up with your surgeon in the orthopedic clinic in 4 we eks from the day of surgery. If you have ami that need to be removed, you will need to come back to the office in 10-14 days from the day of surgery. <Evelyn Downs E - Last Filed: 05/02/19 09:10> Orders not resulted at time of discharge: Pending orders 05/01/19 15:42 Surgical Pathology [PTH] Routine Date of Encounter: 05/02/19 - Hospital Course Hospital course: Ms. Fisher is a 78 year old female - Time Spent with Patient Total time spent providing and/or coordinating discharge services: Primary care physician: Lisa Atwood CNP Consults: 05/01/19 18:16 Consult to Nutrition [CONS] Routine Comment: Consulting Provider: NUTRITION Reason for Dietary Consult: Other Other:: Proper nutrition to facilitate wound healing Consult to Occupational Therapy [CONS] Routine Comment: Evaluate, develop and implement POC Reason for Consult: post knee surgery Does patient have active BEDREST order?: No Is patient medically & hemodynamically stable?: Yes Consult to Orthopedic Navigator [CONS] [CONS] Routine Consult to Physical Therapy [CONS] Routine Comment: Evaluate, develop and impliment POC Reason for Consult: post knee surgery Does patient have active BEDREST order?: No Is patient medically & hemodynamically stable?: Yes Consult to Livestock Trucker [CONS] Routine Reason for SW Consult: post op joint replacement RT Post Op Consult [CONS] Routine Labs on day of discharge: Labs from last 24 hours 05/02/19 05/02/19 05/01/19 03:40 03:40 23:09 WBC 9.6 RBC 3.74 L Hgb 11.3 L Hct 35.2 L MCV 94.1 MCH 30.2 MCHC 32.1 RDW 13.5 Plt Count 182 MPV 9.8 Immature Gran % 0.2 Seg Neutrophils % 89.3 Lymphocytes % 6.9 Monocytes % 3.5 Eosinophils % 0.0 Basophils % 0.1 Neutrophils # 8.6 Lymphocytes # 0.7 Monocytes # 0.3 Eosinophils # 0.0 Basophils # 0.0 Sodium 135 L Potassium 3.8 Chloride 104 Carbon Dioxide 24 BUN 25 H Creatinine 1.07 Est GFR ( Amer) > 60 Est GFR (Non-Af Amer) 50 L BUN/Creatinine Ratio 23 Glucose 188 H POC Glucose 267 H Calculated Osmolality 289 Calcium 9.2 05/01/19 16:58 WBC RBC Hgb 11.3 L Hct 34.9 L MCV MCH MCHC RDW Plt Count MPV Immature Gran % Seg Neutrophils % Lymphocytes % Monocytes % Eosinophils % Basophils % Neutrophils # Lymphocytes # Monocytes # Eosinophils # Basophils # Sodium Potassium Chloride Carbon Dioxide BUN Creatinine Est GFR ( Amer) Est GFR (Non-Af Amer) BUN/Creatinine Ratio Glucose POC Glucose Calculated Osmolality Calcium - Impressions ITS Impressions Knee X-Ray 05/02/19 08:01 IMPRESSION: No acute complication status post left knee arthroplasty D/ / Rafa De La O MD / Rafa De La O MD Interpreting Provider: Rafa De La O MD <Evelyn Lutz - Last Filed: 05/06/19 18:16> Date of Encounter: 05/06/19 Time of Encounter: 15:15 - Discharge Diagnosis (1) Status post total left knee replacement Priority: Primary Status: Acute (2) Osteoarthritis of left knee Priority: Primary Status: Chronic Qualifiers: Osteoarthritis type: unspecified Qualified Code(s): M17.12 - Unilateral primary osteoarthritis, left knee (3) GERD (gastroesophageal reflux disease) Priority: Secondary Status: Chronic Qualifiers: Esophagitis presence: esophagitis presence not specified Qualified Code(s): K21.9 - Gastro-esophageal reflux disease without esophagitis (4) CAD (coronary artery disease) Priority: Secondary Status: Chronic Qualifiers: Coronary Disease-Associated Artery/Lesion type: unspecified vessel or lesion type [place] vs. transplanted heart: unspecified whether [place] or transplanted heart Associated angina: angina presence unspecified Qualified Code(s): I25.10 - Atherosclerotic heart disease of [place] coronary artery without angina pectoris (5) Obesity (BMI 30.0-34.9) Priority: Secondary Status: Chronic (6) Acute blood loss anemia Priority: Secondary Status: Chronic (7) Depression Priority: Secondary Status: Chronic Qualifiers: Depression Type: major depressive disorder Major depression recurrence: recurrent Active/Remission status: in partial remission Qualified Code(s): F33.41 - Major depressive disorder, recurrent, in partial remission (8) HTN (hypertension) Priority: Secondary Status: Chronic Qualifiers: Hypertension type: essential hypertension Qualified Code(s): I10 - Essential (primary) hypertension - Hospital Course Hospital course: Ms. Fisher is a 78 year old female status post left TKR 05/01/19 with medical history of OA, CAD, HTN, GERD ,obesity, depression. She participated in therapy. She was noted by staff that she was seeing things that were not real and per patient just trouble with her vision so UA was ordered but negative for bacterial growth. She denies any urinary symptoms. She is stable for discharge now to [facility] for rehab. She will follow up in [facility] office next week for reevaluation. POD#5 - s/p left total knee replacement 05/01/19 Patient seen at bedside. Patient states she is doing well overall, pain improving. working with therapy and walking in halls with walker. A&Ox3 Dressing and incision c/d/i with only scant old drainage on dressing. No calf tenderness, erythema, or warmth. Neurovascularly intact b/l LE. Labwork, vitals, and medications reviewed. Hgb improved from 8.7 to 9.2 now and trending up Pain control: Adequate Participating in therapy. All questions and concerns addressed. Educated on use of incentive spirometer, ambulation, and hydration. Patient educated on post-operative restrictions and care. Addressed: see above. Patient course and disposition discussed with Dr. Monreal D/C plan: [facility] today. - Time Spent with Patient Total time spent providing and/or coordinating discharge services: Date of admission: 05/03/19 09:32 Primary care physician: Lisa Atwood CNP Consults: 05/01/19 18:16 Consult to Nutrition [CONS] Routine Comment: Consulting Provider: NUTRITION Reason for Dietary Consult: Other Other:: Proper nutrition to facilitate wound healing Consult to Occupational Therapy [CONS] Routine Comment: Evaluate, develop and implement POC Reason for Consult: post knee surgery Does patient have active BEDREST order?: No Is patient medically & hemodynamically stable?: Yes Consult to Orthopedic Navigator [CONS] [CONS] Routine Consult to Physical Therapy [CONS] Routine Comment: Evaluate, develop and impliment POC Reason for Consult: post knee surgery Does patient have active BEDREST order?: No Is patient medically & hemodynamically stable?: Yes Consult to Livestock Trucker [CONS] Routine Reason for SW Consult: post op joint replacement RT Post Op Consult [CONS] Routine Discharging clinician: Rafael Monreal Anticipated date of discharge: 05/06/19 Labs on day of discharge: Labs from last 24 hours 05/06/19 13:20 Hgb 9.2 L Hct 28.5 L - Impressions ITS Impressions Knee X-Ray 05/02/19 08:01 IMPRESSION: No acute complication status post left knee arthroplasty. D/ / 05/02/2019 09:40:31 Rafa De La O MD / sally Interpreting Provider: Rafa De La O MD - Patient Status Functional capacity at discharge: uses cane/walker Overall status at discharge: patient is progressing back to baseline - Diet and Activity Activity: ambulate only with your walker, as per physical therapy Diet: advance to your usual diet
[2019-05-01] MEDS ORDERED: Tranexamic Acid 1,000 MG/10 ML VIAL ONE (15:26)
[2019-05-01] MEDS ORDERED: EPHEDrine 50 MG/ML VIAL ONE (15:34)
--- NOTE | 2019-05-01 15:51 | Anesthesia Procedures ---
Date of Encounter: 05/01/19 Time of Encounter: 14:50 Procedures: Anesthesia - Epidural/Spinal Patient ID/Chart reviewed: Yes Patient examined: Yes Supplemental Oxygen: Nasal Cannula Supplemental Oxygen Rate (L/min): 2 Sedation: Fentanyl (mcg): 100 Site Prep: Aseptic Technique, Povidone-Iodine 1% Patient position: upright Local Anesthetic: Lidocaine 1% Amount of Local Anesthetic used: 2 Interspace Used: L3-L4 Loss of Resistance (KURTIS): Yes Blood: No CSF: Yes Paresthesia: No Spinal Needle Gauge: 25 Spinal Dose: 2.5ml of 0.5% Bupivacaine Procedure: SAB performed with patient in sitting position after sterile aseptic betadine prep.1% Lidocaine skin local and 25 guage Pencan needle inserted L3-L4 on second attempt with NO parasthesia, or blood Clear CSF X4 quads. Given 2.5ml of 0.5% Bupivacaine and assisted to supine position. Tolerated procedure well. Vitals + FHT's: Vital Signs/O2 Sat/Glucose, Most Recent Temp Pulse Resp BP Pulse Ox 98.2 F 66 18 133/86 100 05/01/19 13:41 05/01/19 14:54 05/01/19 13:41 05/01/19 14:54 05/01/19 14:54 - Nerve Block Procedure Date: 05/01/19 Time: 15:00 Allergies/Adv Reactions: Vital Signs/O2 Sat/Glucose, Most Recent Temp Pulse Resp BP Pulse Ox 98.2 F 66 18 133/86 100 05/01/19 13:41 05/01/19 14:54 05/01/19 13:41 05/01/19 14:54 05/01/19 14:54 Allergies Allergy/AdvReac Type Severity Reaction Status Date / Time No Known Allergies Allergy Verified 07/12/18 19:01 Pre-op Diagnosis: Left Knee Arthritis Surgical Procedure: Robotic Left TKA Checklist: Correct Patient Identifier, Correct procedure, History checked Correct side: Left Blood Thinner: No Monitor Applied: EKG, BP, Pulse Oximetry Supplemental Oxygen via Nasal Cannula (L/min): 2 Indication: Post Op Analgesia Pre-op Neuro Deficits: No Block Type: Other (Adductor Canal Block) Catheter placed: No Sterile Technique: Yes Ultrasound used: Yes Anatomy identified: Yes Visual spread of Local: Yes Neuro Stimulation: No Blood on Needle Aspiration: No Smooth Injection of Local: Yes Pain with Injection of Local: No Prep: Chlorhexadine Needle: 21 x 100 mm Stimuplex Local: Ropivacaine (0.5% with 8mg Decadron 25ml) Volume (cc): 25 Number of Attempts: 1 Complications: None/effective block Vitals: Vital Signs/O2 Sat/Glucose, Most Recent Temp Pulse Resp BP Pulse Ox 98.2 F 66 18 133/86 100 05/01/19 13:41 05/01/19 14:54 05/01/19 13:41 05/01/19 14:54 05/01/19 14:54
[2019-05-01] MEDS ORDERED: Propofol 500 MG/50 ML INFUS..BTL ONE (15:56)
--- NOTE | 2019-05-01 16:05 | Orthopedic Operative Note ---
Date of procedure: 05/01/19 Pre-op diagnosis: Left knee arthritis Post-op diagnosis: same Procedure: Procedure: Left robotic-assisted Total knee replacement Estimated blood loss: 200 cc Hardware: Metal and polyethylene replacement. Kenner Femur: 3 Tibia: 3 TS insert: 9 Patella: 36 Exam Under anesthesia: 4 degree flexion contracture 11 degree varus as calculated by the robot full flexion and no instability Procedural Notes: 4 arthritic changes all 3 compartments. Operative procedure: The patient was brought to the operating room and placed on the operating room table. After anesthesia was administered the operative knee was examined. Findings were noted in the exam under anesthesia. The operative extremity was prepped and draped in sterile surgical fashion. The patient received IV antibiotics prior to skin incision. A standard midline incision was made centered over the patella. The incision was made through the skin and subcutaneous tissue. A medial parapatellar tendon approach was performed. Care was taken to preserve tissue along the medial aspect of the patella. And to protect the patella tendon. The deep MCL was released off the medial tibia. The infra patella fat pad was excised. The patella was everted and cut was made at the level of the insertion of the quadriceps and patella tendon. The patella was sized the guide was seated and the lug holes are drilled. Knee was brought into flexion. Patient noted to have 4 arthritic changes all 3 compartments. Steinmann pins were placed in the tibia and the femur for the tibial and femoral arrays respectively. Checkpoints were also placed in the tibia and the femur for calculation purposes. The knee including the femur and the tibial registered. Osteophytes, ACL and PCL were excised at this point. Extension and flexion were assessed with a valgus stress components were adjusted on the computer to balance the knee. Femoral cuts were made first with robotic assistance, these included the anterior cut posterior cuts chamfer cuts. Tibial cut was then performed with robotic assistance as well. Bone fragments were removed, as well as the medial and lateral meniscus. The size 3 femoral guide was seated box cut was made lug holes are drilled. The size 3 tibial tray was seated and prepared with the fin cutter. Trial reduction with the 9 TS Hue revealed extension of 0 degree and 5 degree varus and full flexion. No varus valgus instability. Trial reduction revealed excellent patella tracking. All trial components were removed all bony surfaces were irrigated. The Tibia was seated followed by the femur, The selected Hue size was seated and secu red patella. Patient had similar findings for motion and stability. The knee was closed by the PA. The knee was then irrigated out with 2 L of pulse irrigation. The extensor mechanism was closed with #2 FiberWire suture and #2 PDS suture. The subcutaneous tissue was then irrigated and closed deep with #1 PDS suture superficially with 0 PDS suture and skin was closed with zip tie The patient was then placed in a sterile dressing and a postoperative brace and transferred to recovery room in stable condition. Anesthesia: spinal Surgeon: Rafael Monreal Was there an res habilitation assistant present: Yes Bottom Painter: Bennie Mendiola Estimated blood loss (cc): 200 Condition: stable Disposition: PACU
[2019-05-01] MEDS ORDERED: Ondansetron 4 MG/2 ML VIAL IVP PRN ×3 (16:45→18:16)
--- NOTE | 2019-05-01 17:13 | Anesthesia Evaluation Post Op ---
Date of Encounter: 05/01/19 Time of Encounter: 17:12 - Vital Signs Vital Signs: Vital Signs/O2 Sat, Most Current Temp Pulse Resp BP Pulse Ox 97.8 F 80 18 108/52 100 05/01/19 17:05 05/01/19 17:05 05/01/19 17:05 05/01/19 17:05 05/01/19 17:05 - Lungs Lungs: Clear Ascult./Percussion - Airway Airway: Non-obstructed - Cardiovascular Regular Rate - Mental Status Mental Status: Alert & Oriented, Answers Appropriately - Pain Pain Scale: 0 Pain Scale used: Numeric (1 - 10) - Nausea Vomiting Nausea Vomiting: Responds to treatment with IV Meds - Hydration Hydration: NPO, Has not voided - Discharge PostOp Status: Transfer Patient to floor
[2019-05-01 17:21] LABS: Hematocrit 34.9 % (35.3-44.9); Hemoglobin 11.3 g/dL (11.5-15.4)
[2019-05-01] MEDS ORDERED: MOM Conc 10 ML UD.LIQ PO PRN (18:16)
[2019-05-01] MEDS ORDERED: Naloxone 0.4 MG/ML INJ IVP PRN (18:16)
[2019-05-01] MEDS ORDERED: Ringers Solution, Lactated 1,000 ML IVC SCH (18:16)
[2019-05-01] MEDS ORDERED: Temazepam 15 MG CAPSULE PO PRN (18:16)
[2019-05-01] MEDS ORDERED: *HR* Promethazine 25 MG/ML VIAL IVP PRN (18:16)
[2019-05-01] MEDS ORDERED: Sennosides 8.6 MG TABLET PO PRN (18:16)
[2019-05-01] MEDS: traMADol 50 MG TABLET PO PRN (20:49)
[2019-05-01] MEDS: Ascorbic Acid 500 MG TABLET PO SCH (20:49)
[2019-05-02 04:32] LABS: Basophils % 0.1 %; Hematocrit 35.2 % (35.3-44.9); Hemoglobin 11.3 g/dL (11.5-15.4); Immature Granulocytes % 0.2 % (0-4); Lymphocytes # 0.7 K/mcL (0.6-4.6); Lymphocytes % 6.9 %; Mean Corpuscular HGB Conc 32.1 g/dL (31.6-35.5); Mean Corpuscular Hemoglobin 30.2 pg (28.0-33.3); Mean Corpuscular Volume 94.1 fL (83.0-100.0); Mean Platelet Volume 9.8 fL (9.4-12.4); Monocytes # 0.3 K/mcL (0.0-1.3); Monocytes % 3.5 %; Neutrophils # 8.6 K/mcL (1.6-8.9); Platelet Count 182 K/mcL (140-400); Red Blood Count 3.74 M/mcL (3.82-4.97); Red Cell Distribution Width 13.5 % (11.5-14.5); Segmented Neutrophils % 89.3 %; White Blood Count 9.6 K/mcL (4.3-11.1)
[2019-05-02 04:47] LABS: BUN/Creatinine Ratio 23 (6-26); Blood Urea Nitrogen 25 mg/dL (8-23); Calcium 9.2 mg/dL (8.6-10.3); Carbon Dioxide 24 mEq/L (23-29); Chloride 104 mEq/L (98-107); Glucose 188 mg/dL (70-105); Osmolality,Calculated 289 (280-300); Potassium 3.8 mEq/L (3.5-5.1); Sodium 135 mEq/L (136-145); eGFR For African Americans > 60 (> 60); eGFR For Non-African Americans 50 (> 60)
[2019-05-02] MEDS: *HR* Enoxaparin 30 MG/0.3 ML SYRINGE SQ SCH ×2 (06:13→16:52)
[2019-05-02] MEDS: Multivit/Ca/Min/Fe/FA 1 TAB TABLET PO SCH (08:19)
[2019-05-02] MEDS: Ascorbic Acid 500 MG TABLET PO SCH ×2 (08:19→16:52)
[2019-05-02] MEDS: Aspirin 81 MG TAB.CHEW PO SCH (08:20)
[2019-05-02] MEDS: Losartan/HCTZ 50-12.5 TABLET PO SCH (08:20)
[2019-05-02] MEDS: *HR* OxyCODONE Immed Rel 5 MG TABLET PO PRN ×3 (08:20→18:11)
[2019-05-02] MEDS: FLUoxetine 20 MG CAPSULE PO SCH (08:20)
[2019-05-02] MEDS: amLODIPine 5 MG TABLET PO SCH (08:21)
[2019-05-02] MEDS ORDERED: NON-FORMULARY MEDICATION 1 EACH EACH (Prenatal Vit Calc,Iron,Folic [Prenatal Vitamins] 1 E PO SCH (09:00)
[2019-05-02] MEDS: traMADol 50 MG TABLET PO PRN (19:56)
--- NOTE | 2019-05-02 22:12 | Orthopedics Progress Note ---
Date of Encounter: 05/02/19 Time of Encounter: 12:30 - Assessment and Plan (1) Status post total left knee replacement Current Visit: Yes Status: Acute Subjective Principal diagnosis: s/p left total knee Interval history: s/p left total knee replacement 05/01/19 Patient seen at bedside. Family at bedside. Patient states she is doing well, but is having pain. A&Ox3 Dressing and incision c/d/i No prominent calf tenderness, erythema, or warmth. Neurovascularly intact b/l LE. Labwork, vitals, and medications reviewed. Pain control: Adequate Participating in therapy. All questions and concerns addressed. Educated on use of incentive spirometer, ambulation, and hydration. Patient educated on post-operative restrictions and care. Addressed: see above. Patient course and disposition discussed with Dr. Monreal D/C plan: Awaiting ECF placement acceptance/authorization. Objective Vital signs: Vital Signs Temp Pulse Pulse Resp BP Pulse Ox 05/02/19 19:59 74 05/02/19 18:41 97.5 F L 72 20 95/57 96 05/02/19 15:18 97.3 F L 74 17 109/66 97 05/02/19 11:47 97.5 F L 73 18 95/56 98 05/02/19 07:56 98.3 F 72 17 97/59 95 05/02/19 03:26 97.8 F 80 17 104/58 97 05/01/19 23:09 97.5 F L 78 16 93/55 96 Intake and Output 05/02/19 05/02/19 05/02/19 07:59 15:59 23:59 Intake Total 255 / 1735 720 / 1735 760 / 1735 Balance 255 / 1735 720 / 1735 760 / 1735 Intake: IV Fluids 100 / 100 Ancef 2,000 MG In 0.9 % Sodium 100 / 100 Chloride 100 ML @ 200 mls/hr IVPB Q8H SHRAVAN Rx#:[id number] Oral 155 / 1635 720 / 1635 760 / 1635 Other: Meal Lunch Percent of Meal Consumed 100% # Voids 1 Weight 84 kg Patient Weight 05/02/19 23:59 Weight 84 kg - Labs CBC & BMP: 05/02/19 03:40 05/02/19 03:40 Labs: Abnormal lab results RBC 3.74 M/mcL (3.82-4.97) L 05/02/19 03:40 Hgb 11.3 g/dL (11.5-15.4) L 05/02/19 03:40 Hct 35.2 % (35.3-44.9) L 05/02/19 03:40 Sodium 135 mEq/L (136-145) L 05/02/19 03:40 BUN 25 mg/dL (8-23) H 05/02/19 03:40 Est GFR (Non-Af Amer) 50 (> 60) L 05/02/19 03:40 Glucose 188 mg/dL (70-105) H 05/02/19 03:40 POC Glucose 267 mg/dL (70-99) H 05/01/19 23:09 Consult Discharge Plan - Plan Referrals: Lisa Atwood, BRYAN [Primary Care Provider] - Prescriptions: Aspirin Enteric Coated [Aspirin EC] 325 mg PO BID 10 Days #20 tablet.dr Prescription Printed Docusate [Colace] 100 mg PO BID 5 Days #10 capsule Prescription Printed Acetaminophen [Pain Relief] 500 mg PO Q6H 7 Days #28 tablet Prescription Printed OxyCODONE Immed Rel [Roxicodone 5 MG] 5 mg PO Q6HR PRN 5 Days #20 tablet PRN Reason: Severe Pain Prescription Printed
--- NOTE | 2019-05-02 22:33 | Physician Discharge Referral ---
ExtendedCare Referral Info Transfer To: [facility] Provider in Charge: Dr. Rafael Monreal - Diagnosis (1) Status post total left knee replacement Status: Acute - Transfer Medications Prescriptions: Aspirin Enteric Coated [Aspirin EC] 325 mg PO BID 10 Days #20 tablet. Prescription Printed Docusate [Colace] 100 mg PO BID 5 Days #10 capsule Prescription Printed Acetaminophen [Pain Relief] 500 mg PO Q6H 7 Days #28 tablet Prescription Printed OxyCODONE Immed Rel [Roxicodone 5 MG] 5 mg PO Q6HR PRN 5 Days #20 tablet PRN Reason: Severe Pain Prescription Printed Home Medications: Aspirin 81 mg PO DAILY 01/12/16 [History] Losartan/Hydrochlorothiazide [Hyzaar 100-25 Tablet] 1 tab PO DAILY 01/12/16 [History] Simvastatin [Zocor] 40 mg PO HS 01/12/16 [History] Amlodipine Besylate 5 mg PO DAILY 01/26/16 [History] Hydroxychloroquine [Plaquenuil] 200 mg PO BID 04/09/16 [History] Vit Calc,Iron,Folic [ Vitamins] 1 each PO DAILY 04/09/16 [History] FLUoxetine HCl [Prozac] 40 mg PO DAILY 02/22/17 [History] Etodolac 400 mg PO BID 07/11/17 [History] HYDROcodone/Acet 5/325 mg [Brusett 5-325 mg] 1 tab PO Q6H PRN #12 tab 07/11/17 [Rx] hydrOXYzine HCl [Hydroxyzine HCl] 25 mg PO TID PRN 07/11/17 [History] Acetaminophen [Pain Relief] 500 mg PO Q6H 7 Days #28 tablet 05/01/19 [Rx] Docusate [Colace] 100 mg PO BID 5 Days #10 capsule 05/01/19 [Rx] OxyCODONE Immed Rel [Roxicodone 5 MG] 5 mg PO Q6HR PRN 5 Days #20 tablet 05/01/19 [Rx] Aspirin Enteric Coated [Aspirin EC] 325 mg PO BID 10 Days #20 tablet. 05/02/19 [Rx] Allergies/Adverse Reactions: Allergy/AdvReac Type Severity Reaction Status Date / Time No Known Allergies Allergy Verified 07/12/18 19:01 - Respiratory Orders Smoking Cessation: Smoking cessation has been advised. For more information, call the [place] Tobacco Quit Line at 0-611-OTAZ-NOW. - Ancillary Orders May use pressure relief devices daily prn, May go on KATLIN w/family/respon constitution party w/meds at nurse discretion PRN, May consult with Dentist, Lining Cutter, Press Breaker PRN - Mobility Orders Chair, Ambulate - Rehabiliation Orders Rehab Potential: Good Rehab Orders: Evaluation for Physical Therapy, Evaluation for Occupational Therapy Other: Total Knee replacement Precautions x 6 weeks Apply cold therapy wrap 3-6x/day for 20 minutes at a time. Encourage ambulation throughout the day and incentive spirometer 10x/hour. Elevate affected extremity above heart as tolerated. Brace: Wear knee immobilizer at night x 2 weeks. Opsite placed. Keep dressing intact until first follow up appointment. If greater than 50% saturated, notify office, remove dressing and place appropriate dressing back in place. Leave Zipline intact. Opsite dressing is water resistant, not water-proof. OK to shower, but do not get dressing wet. - Treatments Skin tear care topically daily PRN per policy - Diet Orders Regular CERTIFICATION: I certify that the transfer of the above named patient to an Extended Care Facility is necessary for the continuing treatment of the diagnosis listed. The above information is true and accurate reflection of patient's current condition. Confidential - Redisclosure prohibited without a patient's written consent.
[2019-05-03] MEDS: *HR* Enoxaparin 30 MG/0.3 ML SYRINGE SQ SCH ×2 (06:08→17:15)
--- NOTE | 2019-05-03 08:01 | Orthopedics Progress Note ---
Date of Encounter: 05/03/19 Time of Encounter: 08:00 Subjective Principal diagnosis: s/p left total knee Interval history: No overnight issues. Pain is controlled. No nausea/vomiting. No CP/SOB. Vitals reviewed Hg 11.3 Extremity exam: Dressing clean, dry and intact No erythema or drainage Distally neurovascularly intact to motor/sensory exam No calf pain or tenderness s/p L TKA Continue current management PO pain and nausea control Up with PT Discharge planning Objective Vital signs: Vital Signs Temp Pulse Pulse Resp BP Pulse Ox 05/03/19 06:32 98.5 F 71 18 102/60 97 05/03/19 04:23 97.6 F 72 20 96/58 96 05/03/19 00:40 72 05/03/19 00:21 97.9 F 75 20 101/60 97 05/02/19 19:59 74 05/02/19 18:41 97.5 F L 72 20 95/57 96 05/02/19 15:18 97.3 F L 74 17 109/66 97 05/02/19 11:47 97.5 F L 73 18 95/56 98 Intake and Output 05/02/19 05/03/19 05/03/19 23:59 07:59 15:59 Intake Total 760 / 1735 250 / 250 Balance 760 / 1735 250 / 250 Intake: Oral 760 / 1635 250 / 250 Other: Weight 84.1 kg Patient Weight 05/03/19 23:59 Weight 84.1 kg - Labs CBC & BMP: 05/02/19 03:40 05/02/19 03:40 Labs: Abnormal lab results RBC 3.74 M/mcL (3.82-4.97) L 05/02/19 03:40 Hgb 11.3 g/dL (11.5-15.4) L 05/02/19 03:40 Hct 35.2 % (35.3-44.9) L 05/02/19 03:40 Sodium 135 mEq/L (136-145) L 05/02/19 03:40 BUN 25 mg/dL (8-23) H 05/02/19 03:40 Est GFR (Non-Af Amer) 50 (> 60) L 05/02/19 03:40 Glucose 188 mg/dL (70-105) H 05/02/19 03:40 POC Glucose 267 mg/dL (70-99) H 05/01/19 23:09 Consult Discharge Plan - Plan Referrals: iLsa Atwood CNP [Primary Care Provider] - Prescriptions: Aspirin Enteric Coated [Aspirin EC] 325 mg PO BID 10 Days #20 tablet. Prescription Printed Docusate [Colace] 100 mg PO BID 5 Days #10 capsule Prescription Printed Acetaminophen [Pain Relief] 500 mg PO Q6H 7 Days #28 tablet Prescription Printed OxyCODONE Immed Rel [Roxicodone 5 MG] 5 mg PO Q6HR PRN 5 Days #20 tablet PRN Reason: Severe Pain Prescription Printed
[2019-05-03] MEDS: *HR* OxyCODONE Immed Rel 5 MG TABLET PO PRN ×3 (08:05→21:07)
[2019-05-03] MEDS: Multivit/Ca/Min/Fe/FA 1 TAB TABLET PO SCH (08:05)
[2019-05-03] MEDS: FLUoxetine 20 MG CAPSULE PO SCH (08:05)
[2019-05-03] MEDS: Ascorbic Acid 500 MG TABLET PO SCH ×2 (08:05→17:14)
[2019-05-03] MEDS: Aspirin 81 MG TAB.CHEW PO SCH (08:05)
[2019-05-03] MEDS: Losartan/HCTZ 50-12.5 TABLET PO SCH (08:06)
[2019-05-03] MEDS: amLODIPine 5 MG TABLET PO SCH (08:06)
[2019-05-03 09:14] LABS: Basophils % 0.3 %; Eosinophils # 0.1 K/mcL (0.0-0.6); Eosinophils % 1.5 %; Hematocrit 29.8 % (35.3-44.9); Immature Granulocytes % 0.3 % (0-4); Lymphocytes % 13.8 %; Mean Corpuscular HGB Conc 31.5 g/dL (31.6-35.5); Mean Corpuscular Hemoglobin 29.9 pg (28.0-33.3); Mean Corpuscular Volume 94.9 fL (83.0-100.0); Mean Platelet Volume 10.2 fL (9.4-12.4); Monocytes # 0.6 K/mcL (0.0-1.3); Monocytes % 8.7 %; Neutrophils # 5.5 K/mcL (1.6-8.9); Platelet Count 148 K/mcL (140-400); Red Blood Count 3.14 M/mcL (3.82-4.97); Red Cell Distribution Width 13.9 % (11.5-14.5); Segmented Neutrophils % 75.4 %; White Blood Count 7.3 K/mcL (4.3-11.1)
[2019-05-03 09:17] LABS: Hemoglobin 9.4 g/dL (11.5-15.4)
[2019-05-03 09:33] LABS: BUN/Creatinine Ratio 30 (6-26); Blood Urea Nitrogen 26 mg/dL (8-23); Calcium 8.8 mg/dL (8.6-10.3); Carbon Dioxide 27 mEq/L (23-29); Chloride 103 mEq/L (98-107); Glucose 131 mg/dL (70-105); Osmolality,Calculated 287 (280-300); Potassium 4.1 mEq/L (3.5-5.1); Sodium 135 mEq/L (136-145); eGFR For African Americans > 60 (> 60); eGFR For Non-African Americans > 60 (> 60)
[2019-05-03] MEDS: HYDROcodone BIT/Homatropine 5 MG TABLET PO PRN (13:45)
[2019-05-04 03:56] LABS: Basophils % 0.6 %; Eosinophils % 0.6 %; Hematocrit 29.2 % (35.3-44.9); Hemoglobin 9.4 g/dL (11.5-15.4); Immature Granulocytes % 0.6 % (0-4); Lymphocytes # 0.9 K/mcL (0.6-4.6); Lymphocytes % 14.3 %; Mean Corpuscular HGB Conc 32.2 g/dL (31.6-35.5); Mean Corpuscular Volume 93.3 fL (83.0-100.0); Mean Platelet Volume 10.2 fL (9.4-12.4); Monocytes # 0.8 K/mcL (0.0-1.3); Monocytes % 11.8 %; Neutrophils # 4.7 K/mcL (1.6-8.9); Platelet Count 150 K/mcL (140-400); Red Blood Count 3.13 M/mcL (3.82-4.97); Red Cell Distribution Width 14.1 % (11.5-14.5); Segmented Neutrophils % 72.1 %; White Blood Count 6.5 K/mcL (4.3-11.1)
[2019-05-04 04:16] LABS: BUN/Creatinine Ratio 24 (6-26); Blood Urea Nitrogen 17 mg/dL (8-23); Calcium 8.7 mg/dL (8.6-10.3); Carbon Dioxide 29 mEq/L (23-29); Chloride 106 mEq/L (98-107); Glucose 115 mg/dL (70-105); Osmolality,Calculated 286 (280-300); Potassium 3.8 mEq/L (3.5-5.1); Sodium 137 mEq/L (136-145); eGFR For African Americans > 60 (> 60); eGFR For Non-African Americans > 60 (> 60)
[2019-05-04] MEDS: *HR* OxyCODONE Immed Rel 5 MG TABLET PO PRN ×3 (06:00→16:19)
[2019-05-04] MEDS: *HR* Enoxaparin 30 MG/0.3 ML SYRINGE SQ SCH ×2 (06:00→17:02)
[2019-05-04] MEDS: Ascorbic Acid 500 MG TABLET PO SCH ×2 (07:49→16:19)
[2019-05-04] MEDS: amLODIPine 5 MG TABLET PO SCH (07:50)
[2019-05-04] MEDS: FLUoxetine 20 MG CAPSULE PO SCH (07:50)
[2019-05-04] MEDS: Losartan/HCTZ 50-12.5 TABLET PO SCH (07:50)
[2019-05-04] MEDS: Multivit/Ca/Min/Fe/FA 1 TAB TABLET PO SCH (07:50)
[2019-05-04] MEDS: Aspirin 81 MG TAB.CHEW PO SCH (07:50)
--- NOTE | 2019-05-04 11:10 | Orthopedics Progress Note ---
Date of Encounter: 05/04/19 Time of Encounter: 11:10 Subjective Principal diagnosis: s/p left total knee Interval history: No overnight issues. Pain is controlled. No nausea/vomiting. No CP/SOB. Vitals reviewed Extremity exam: Dressing clean, dry and intact No erythema or drainage Distally neurovascularly intact to motor/sensory exam No calf pain or tenderness s/p L TKA Continue current management PO pain and nausea control Up with PT Discharge planning Objective Vital signs: Vital Signs Temp Pulse Resp BP Pulse Ox 05/04/19 06:23 99.7 F H 95 18 133/64 98 05/04/19 05:36 99.9 F H 105 20 125/72 96 05/03/19 23:46 97.4 F L 100 20 128/71 100 05/03/19 18:44 97.9 F 72 20 125/74 94 05/03/19 15:21 98.3 F 89 18 115/68 93 Intake and Output 05/03/19 05/04/19 05/04/19 23:59 07:59 15:59 Intake Total 450 / 1300 Balance 450 / 1300 Intake: Oral 450 / 1300 Other: Meal Dinner Percent of Meal Consumed 10% # Voids 1 Weight 84.2 kg Patient Weight 05/04/19 23:59 Weight 84.2 kg - Labs CBC & BMP: 05/04/19 03:21 05/04/19 03:21 Labs: Abnormal lab results RBC 3.13 M/mcL (3.82-4.97) L 05/04/19 03:21 Hgb 9.4 g/dL (11.5-15.4) L 05/04/19 03:21 Hct 29.2 % (35.3-44.9) L 05/04/19 03:21 MCHC 31.5 g/dL (31.6-35.5) L 05/03/19 08:46 Sodium 135 mEq/L (136-145) L 05/03/19 08:46 BUN 26 mg/dL (8-23) H 05/03/19 08:46 Est GFR (Non-Af Amer) 50 (> 60) L 05/02/19 03:40 BUN/Creatinine Ratio 30 (6-26) H 05/03/19 08:46 Glucose 115 mg/dL (70-105) H 05/04/19 03:21 POC Glucose 267 mg/dL (70-99) H 05/01/19 23:09 Consult Discharge Plan - Plan Referrals: Lisa Atwood CNP [Primary Care Provider] -
[2019-05-04 12:01] LABS: Bilirubin,Urine Negative (Negative); Blood,Urine Negative (Negative); Clarity,Urine Clear (Clear); Color,Urine Yellow (Yellow); Glucose,Urine (UA) Normal (Normal); Ketones,Urine Negative (Negative); Leukocyte Esterase,Urine Small (Negative); Nitrite,Urine Negative (Negative); PH,Urine 6.5 pH Units (5.0-8.0); Protein,Urine Negative (Neg-Trace); Specific Gravity,Urine 1.015 (1.010-1.025); Urobilinogen,Urine Normal (Normal)
[2019-05-04 12:08] LABS: Bacteria,Urine Few per hpf (None-Few); RBC,Urine 0-3 per hpf (0-3); Squamous Epithelial Cell,Urine Few per lpf (None-Few)
[2019-05-04] MEDS: HYDROcodone BIT/Homatropine 5 MG TABLET PO PRN (21:50)
[2019-05-05] MEDS: *HR* Enoxaparin 30 MG/0.3 ML SYRINGE SQ SCH ×2 (05:36→16:26)
[2019-05-05] MEDS: HYDROcodone BIT/Homatropine 5 MG TABLET PO PRN ×2 (05:39→20:23)
--- NOTE | 2019-05-05 06:45 | Orthopedics Progress Note ---
Date of Encounter: 05/05/19 Time of Encounter: 06:44 - Assessment and Plan (1) Acute blood loss anemia Current Visit: Yes Status: Acute Subjective Principal diagnosis: s/p left total knee Interval history: Patient was seen this morning doing well without complaints. Afebrile vital signs stable. Operative extremity: Neurovascularly intact Dressing clean dry and intact Calves nontender Assessment and plan: Continue with postoperative care Hemoglobin 9.2 plan for discharge today Objective Vital signs: Vital Signs Temp Pulse Pulse Resp BP Pulse Ox 05/05/19 04:40 100.4 F H 104 20 119/72 97 05/05/19 00:48 100.0 F H 107 20 143/73 96 05/05/19 00:28 102 05/04/19 21:53 103 05/04/19 19:02 98.1 F 95 20 103/58 98 05/04/19 15:49 99.0 F 87 16 121/73 05/04/19 11:42 99.4 F 97 120/69 94 Intake and Output 05/04/19 05/04/19 05/05/19 15:59 23:59 07:59 Intake Total 600 / 1050 450 / 1050 Balance 600 / 1050 450 / 1050 Intake: Oral 600 / 1050 450 / 1050 Other: Meal Lunch Dinner Percent of Meal Consumed 100% 100% # Voids 1 - Labs CBC & BMP: 05/04/19 03:21 05/04/19 03:21 Labs: Abnormal lab results RBC 3.13 M/mcL (3.82-4.97) L 05/04/19 03:21 Hgb 9.4 g/dL (11.5-15.4) L 05/04/19 03:21 Hct 29.2 % (35.3-44.9) L 05/04/19 03:21 MCHC 31.5 g/dL (31.6-35.5) L 05/03/19 08:46 Sodium 135 mEq/L (136-145) L 05/03/19 08:46 BUN 26 mg/dL (8-23) H 05/03/19 08:46 Est GFR (Non-Af Amer) 50 (> 60) L 05/02/19 03:40 BUN/Creatinine Ratio 30 (6-26) H 05/03/19 08:46 Glucose 115 mg/dL (70-105) H 05/04/19 03:21 POC Glucose 267 mg/dL (70-99) H 05/01/19 23:09 Ur Leukocyte Esterase Small (Negative) H 05/04/19 11:13 Urine Microscopic WBC 3-5 per hpf (0-3) H 05/04/19 11:13 Ur Culture Indicated? YES (NO) A 05/04/19 11:13 Consult Discharge Plan - Plan Referrals: Lisa Atwood CNP [Primary Care Provider] -
[2019-05-05 07:02] LABS: Basophils % 0.5 %; Eosinophils # 0.1 K/mcL (0.0-0.6); Eosinophils % 1.5 %; Hematocrit 26.9 % (35.3-44.9); Hemoglobin 8.7 g/dL (11.5-15.4); Immature Granulocytes % 0.3 % (0-4); Lymphocytes # 1.1 K/mcL (0.6-4.6); Lymphocytes % 18.5 %; Mean Corpuscular HGB Conc 32.3 g/dL (31.6-35.5); Mean Corpuscular Hemoglobin 30.3 pg (28.0-33.3); Mean Corpuscular Volume 93.7 fL (83.0-100.0); Monocytes # 0.7 K/mcL (0.0-1.3); Neutrophils # 4.2 K/mcL (1.6-8.9); Platelet Count 144 K/mcL (140-400); Red Blood Count 2.87 M/mcL (3.82-4.97); Red Cell Distribution Width 14.3 % (11.5-14.5); Segmented Neutrophils % 68.2 %; White Blood Count 6.2 K/mcL (4.3-11.1)
[2019-05-05 07:21] LABS: BUN/Creatinine Ratio 21 (6-26); Blood Urea Nitrogen 15 mg/dL (8-23); Calcium 8.6 mg/dL (8.6-10.3); Carbon Dioxide 30 mEq/L (23-29); Chloride 104 mEq/L (98-107); Glucose 120 mg/dL (70-105); Osmolality,Calculated 288 (280-300); Potassium 3.5 mEq/L (3.5-5.1); Sodium 138 mEq/L (136-145); eGFR For African Americans > 60 (> 60); eGFR For Non-African Americans > 60 (> 60)
[2019-05-05] MEDS: Losartan/HCTZ 50-12.5 TABLET PO SCH (07:54)
[2019-05-05] MEDS: amLODIPine 5 MG TABLET PO SCH (07:54)
[2019-05-05] MEDS: FLUoxetine 20 MG CAPSULE PO SCH (07:54)
[2019-05-05] MEDS: Multivit/Ca/Min/Fe/FA 1 TAB TABLET PO SCH (07:54)
[2019-05-05] MEDS: Ascorbic Acid 500 MG TABLET PO SCH ×2 (07:55→16:24)
[2019-05-05] MEDS: Aspirin 81 MG TAB.CHEW PO SCH (07:55)
--- NOTE | 2019-05-05 12:47 | Event Note ---
Date of Encounter: 05/05/19 Time of Encounter: 11:35 s/p left total knee replacement 05/01/19 Patient seen at bedside. Patient states she is doing well overall, pain improving. working with therapy and walking in halls with walker. A&Ox3 Dressing and incision c/d/i with only scant old drainage on dressing. No prominent calf tenderness, erythema, or warmth. Neurovascularly intact b/l LE. Labwork, vitals, and medications reviewed. noted to have Tmax 100.4 overnight which has now normalized to 98.8. NO cough, dyspnea, CP and feeling well otherwise. She states she is at her baseline SOB with no new or worsening symptoms. Encouraged IS use. Pain control: Adequate Participating in therapy. All questions and concerns addressed. Educated on use of incentive spirometer, ambulation, and hydration. Patient educated on post-operative restrictions and care. Addressed: see above. Patient course and disposition discussed with Dr. Monreal D/C plan: Awaiting ECF placement acceptance/authorization.
[2019-05-06] MEDS: *HR* Enoxaparin 30 MG/0.3 ML SYRINGE SQ SCH (05:08)
--- NOTE | 2019-05-06 06:34 | Orthopedics Progress Note ---
Date of Encounter: 05/06/19 Time of Encounter: 06:33 - Assessment and Plan (1) Acute blood loss anemia Current Visit: Yes Status: Acute Subjective Principal diagnosis: s/p left total knee Interval history: Patient was seen this morning doing well without complaints. Afebrile vital signs stable. Operative extremity: Neurovascularly intact Dressing clean dry and intact Calves nontender Assessment and plan: Continue with postoperative care discharge today Objective Vital signs: Vital Signs Temp Pulse Resp BP Pulse Ox 05/06/19 03:48 98.8 F 91 17 121/72 95 05/05/19 23:25 99.4 F 102 18 130/73 95 05/05/19 19:30 99.2 F 102 18 131/74 98 05/05/19 15:00 98.4 F 93 16 131/69 96 05/05/19 11:08 98.6 F 98 15 123/73 95 05/05/19 06:52 98.8 F 103 16 132/77 95 Intake and Output 05/05/19 05/05/19 05/06/19 15:59 23:59 07:59 Intake Total 600 / 1100 500 / 1100 0 / 0 Output Total 0 / 0 0 / 0 Balance 600 / 1100 500 / 1100 0 / 0 Intake: Oral 600 / 1100 500 / 1100 0 / 0 Output: Urine 0 / 0 0 / 0 Other: Meal Lunch Dinner Percent of Meal Consumed 100% 20% # Voids 1 1 Weight 88.18 kg Patient Weight 05/06/19 23:59 Weight 88.18 kg - Labs CBC & BMP: 05/05/19 06:26 05/05/19 06:26 Labs: Abnormal lab results RBC 2.87 M/mcL (3.82-4.97) L 05/05/19 06:26 Hgb 8.7 g/dL (11.5-15.4) L 05/05/19 06:26 Hct 26.9 % (35.3-44.9) L 05/05/19 06:26 MCHC 31.5 g/dL (31.6-35.5) L 05/03/19 08:46 Sodium 135 mEq/L (136-145) L 05/03/19 08:46 Carbon Dioxide 30 mEq/L (23-29) H 05/05/19 06:26 BUN 26 mg/dL (8-23) H 05/03/19 08:46 Est GFR (Non-Af Amer) 50 (> 60) L 05/02/19 03:40 BUN/Creatinine Ratio 30 (6-26) H 05/03/19 08:46 Glucose 120 mg/dL (70-105) H 05/05/19 06:26 POC Glucose 267 mg/dL (70-99) H 05/01/19 23:09 Ur Leukocyte Esterase Small (Negative) H 05/04/19 11:13 Urine Microscopic WBC 3-5 per hpf (0-3) H 05/04/19 11:13 Ur Culture Indicated? YES (NO) A 05/04/19 11:13 Consult Discharge Plan - Plan Referrals: Lisa Atwood, [employer] [Primary Care Provider] -
[2019-05-06] MEDS: Aspirin 81 MG TAB.CHEW PO SCH (08:22)
[2019-05-06] MEDS: amLODIPine 5 MG TABLET PO SCH (08:22)
[2019-05-06] MEDS: FLUoxetine 20 MG CAPSULE PO SCH (08:22)
[2019-05-06] MEDS: Ascorbic Acid 500 MG TABLET PO SCH (08:22)
[2019-05-06] MEDS: Multivit/Ca/Min/Fe/FA 1 TAB TABLET PO SCH (08:22)
[2019-05-06] MEDS: Losartan/HCTZ 50-12.5 TABLET PO SCH (08:22)
[2019-05-06 13:40] LABS: Hematocrit 28.5 % (35.3-44.9); Hemoglobin 9.2 g/dL (11.5-15.4)
[2019-05-06 15:42] VITALS: BP 133/79
[2019-05-06] MEDS: HYDROcodone BIT/Homatropine 5 MG TABLET PO PRN (17:16)
== END 2019-05-06 17:45 ==
LOC: SAMDAY 12:53 → 3NENU 12:53
PROVIDERS: ADMIT Orthopaedic Surgery; ATTEND Orthopaedic Surgery